=== PATIENT | female | born 1975 | race Caucasian/White ===

== ENCOUNTER → 2016-06-07 | Outpatient (CLI) | payer OTHER | END | disposition home or self-care (01) | LOC: C.PAPS 15:29 | PROVIDERS: ATTEND Obstetrics & Gynecology | DX: Z12.4 Encounter for screening for malignant neoplasm of cervix (principal) ==

== ENCOUNTER 2016-06-10 05:27 | Day surgery (SDC) | payer OTHER ==
--- NOTE | 2016-06-06 16:20 | HISTORY & PHYSICAL EXAMINATION ---
DATE OF ADMISSION: 06/10/2016 CHIEF COMPLAINT: Severe dysmenorrhea and heavy vaginal bleeding with clotting. HISTORY OF PRESENT ILLNESS: The patient is a 40-year-old 1, para 1. She has a history of being diagnosed with PCOD, pelvic and bowel adhesions and endometriosis. Her present problem started about a year ago when she started to have heavy vaginal bleeding with clotting and severe pelvic pain. The symptoms have been getting worse over the past year. When she gets her periods she has 2-3 days of heavy bleeding, soaking over a pad an hour, having to wear a pad and a tampon at night and bleeding through. Also her periods have become somewhat irregular. She has had 3 cycles in March, all of which were heavy cycles lasting for 6 days with 2-3 days of real heavy bleeding. During this heavy bleeding she has severe pelvic pain, for the same 2-3 days, unresponsive to non-narcotic pain relievers and she is unable to function during that time. She recently had a transvaginal ultrasound done on 05/09/2016 and that showed a thickened endometrium with the presence of some suspected endometrial polyps. She is presently being scheduled for an outpatient D\T\C hysteroscopy. PAST MEDICAL HISTORY: She has one girl 13 years old in good health. ALLERGIES: ALLERGIC TO AMOXICILLIN. PAST SURGICAL HISTORY: She has had 3 laparoscopies, 1 with a diagnosis of PCOD and she had a procedure of ovarian drilling at that time and she had 2 laparoscopies with lysis of adhesions. PAST MEDICAL HISTORY: No history of diabetes or high blood pressure. SOCIAL HISTORY: No smoking. No excessive alcohol intake. She is presently employed. FAMILY HISTORY: Mom is 69 in good health. Father 72, heavy smoker. REVIEW OF SYSTEMS: HEAD: No symptoms of frequent or severe headaches. EYES: No symptoms of blurred vision or double vision. EARS: No symptoms of frequent ear infections. PHYSICAL EXAMINATION: GENERAL: Well developed, well-nourished 40-year-old white female, alert, oriented x3 and cooperative in no acute distress, appears stated age. EYES: Conjunctivae are pink, sclerae white, no evidence of jaundice. EARS: Had normal light reflex bilaterally. NOSE: Had normal mucosa. Septum is midline. There were no polyps. THROAT: No erythema or evidence of infection. Teeth are in good state of repair. HEAD: Normocephalic, normal distribution of hair. NECK: Supple. Trachea midline. Thyroid is not enlarged. There is no adenopathy appreciated. Both carotids are of good intensity. CHEST: Clear to auscultation and percussion. No wheezes, rales or rhonchi appreciated. HEART: Regular rhythm. S1 and S2 are normal. BREASTS: Normal. ABDOMEN: Soft and nontender. PELVIC: Revealed normal-appearing cervix. Uterus was top normal size. There are no adnexal masses appreciated. MUSCULOSKELETAL: Revealed no calf tenderness. IMPRESSIONS OF THIS CASE: Status post 3 previous laparoscopies, status post lysis of adhesions and symptomatic uterine polyps, hypermenorrhea, severe pelvic pain.
[2016-06-07 12:49] VITALS: BMI 23.0
[2016-06-07 14:37] LABS: BASO % 0.2 %; BASO ABS # 0.01 K/uL (0-0.2); COMPLETE YES; EOS % 5.4 %; HEMATOCRIT 37.3 % (37-47); IG% 0.2 %; LYMPH % 40.9 %; LYMPH ABS # 1.98 K/uL (1.2-3.4); MEAN CELL VOLUME 91.6 fL (80-100); MEAN CORPUSCULAR HEMOGLOBIN 30.5 pg (25-34); MEAN CORPUSCULAR HGB CONC 33.2 g/dl (32-36); MEAN PLATELET VOLUME 10.6 fL (7.4-10.4); NEUT % 46.3 %; PLATELET COUNT 213 K/uL (130-400); RED BLOOD COUNT 4.07 M/uL (4.2-5.4); WHITE BLOOD COUNT 4.84 K/uL (4.8-10.8)
[2016-06-07 15:08] LABS: PREG INTERNAL NEGATIVE QC NEG CLEAR BACKGROUND; PREG INTERNAL POSITIVE QC POS CONTROL LINE
[~2016-06-10] VITALS: Ht 165.1 cm; Wt 64.1 kg
[2016-06-10 05:55] VITALS: BP 114/73; PULSE 86; TEMP 36.4; O2SAT 98; Ht 165.1 cm; Wt 64.1 kg
[2016-06-10] MEDS ORDERED: LACTATED RINGER'S 1000ML 1,000 ML IV SCH (06:00)
[2016-06-10] MEDS ORDERED: ONDANSETRON INJ 2 MG/ML 2 ML VIAL IV PRN ×2 (06:45→08:15)
[2016-06-10] MEDS ORDERED: ATROPINE SULFATE 0.1 MG/ML 5ML SYR IV PRN (06:45)
[2016-06-10] MEDS ORDERED: FENTANYL CITRATE INJ 50 MCG/1 ML 2 ML VIAL IV PRN (06:45)
[2016-06-10] MEDS ORDERED: EpHEDrine SULFATE INJ 50 MG/ML AMP IV PRN (06:45)
[2016-06-10] MEDS ORDERED: MIDAZOLAM HCL 1 MG/ML 2ML VIAL ONE (06:55)
[2016-06-10] MEDS ORDERED: FENTANYL CITRATE INJ 50 MCG/1 ML 2 ML VIAL ONE ×3 (06:55→08:14)
[2016-06-10] MEDS ORDERED: KETAMINE HCL INJ 50 MG/ML 10 ML VIAL ONE (06:56)
--- NOTE | 2016-06-10 07:28 | History & Physical Bridge Note ---
H&P Re-Evaluation Bridge Note: I have examined the patient, reviewed the History & Physical and in the interval since the performance of the History & Physical I have noted the following changes of clinical significance: No changes noted
[2016-06-10] MEDS ORDERED: KETOROLAC TROMETHAMINE 30 MG/ML VIAL ONE ×2 (08:13→08:27)
[2016-06-10] MEDS ORDERED: SODIUM CHLORIDE 0.9% 1000ML 1,000 ML IV SCH (08:15)
[2016-06-10] MEDS ORDERED: HYDROCODONE/ACETAMOPHEN 5/325MG TAB PO PRN ×4 (08:15)
[2016-06-10] MEDS ORDERED: IBUPROFEN 600 MG TAB PO PRN (08:15)
[2016-06-10] MEDS ORDERED: KETOROLAC TROMETHAMINE 30 MG/ML VIAL IV. PRN (08:15)
[2016-06-10] MEDS ORDERED: OXYCODONE/ACETAMINOPHEN 5-325 TAB PO PRN ×2 (08:15)
--- NOTE | 2016-06-10 08:15 | [facility] Post Operative Brief Note ---
Immediate Operative Summary Operative Date Jun 10, 2016. Pre-Operative Diagnosis Severe Dysmenorrhea and Symptomatic Uterine Polyps Post-Operative Diagnosis Severe Dysmenorrhea and Symptomatic Uterine Polyps Procedure(s) Performed Hysteroscopy, Dilation & Currettage and Polypectomy Surgeon Dr. Jose Manuel Delarosa Building Coordinator Surgeon(s) None Estimated Blood Loss 10ml Findings UTERUS SOUNDED TO 8.5 CM POLYPS REMOVED Specimens A. Uterine polyp B. Endometrial Currettings Complication(s) None Disposition Recovery Room / PACU
--- NOTE | 2016-06-10 08:18 | Discharge Instructions ---
Discharge Instructions Visit Reason for Visit: Hypermenorrhea, Endometrial Polyps, Dysmenorrhea, Discharge Discharge Diagnosis / Problem: SAME ADMISSION Discharge Goals Goal(s): Decrease discomfort, Improve function Activity Recommendations Activity Limitations: as noted below ACTIVITY RECOMMENDATIONS: * Avoid tampons, douching, hot tubs, pools, and intercourse until bleeding has stopped. * May shower as usual. * No strenuous activity for 24-48 hours. After 24-48 hours, you may do anything you feel like doing (driving and sports are okay). SPECIAL CARE INSTRUCTIONS: Special Diet: * Mild nausea may occur in the immediate post-operative period. * Take clear liquids such as tea, cola or bouillon until all nausea has subsided; you may then resume your normal diet. Special Care: * Light bleeding and vaginal spotting can last from a few days to 3-4 weeks. Call your doctor if bleeding becomes heavier than the heaviest part of your period. * Check your temperature twice a day for one week. If it goes above 100.4 degrees Fahrenheit (38.0 Celsius), notify your doctor. * Call your doctor's office for an appointment for 6 weeks after your surgery. FOLLOW-UP VISIT: Call your doctor's office for an appointment for 6 weeks after your surgery. Anesthesia . Post Anesthesia Instructions: If you have had General Anesthesia or IV Sedation: * Do not drive today. * Resume driving when surgeon permits. * Do not make important decisions or sign legal documents today. * Call surgeon for: 1. Temperature elevations greater than 101 degrees F. 2. Uncontrollable pain. 3. Excessive bleeding. 4. Persistent nausea and vomiting. 5. Medication intolerance (nausea, vomiting or rash). * For nausea and vomiting use only clear liquids such as: tea, soda, bouillon until nausea subsides, then gradually increase diet as tolerated. * If you have any concerns or questions, call your surgeon's office. If physician is unavailable and it is an emergency, call 911 or go to the nearest emergency room. . Diet Recommendations Recommended Home Diet: resume previous diet Procedures Procedures Performed: Hysteroscopy, Dilation & Currettage and Polypectomy Pending Studies Studies pending at discharge: no Medical Emergencies . Who to Call and When: Medical Emergencies: If at any time you feel your situation is an emergency, please call 911 immediately. . Non-Emergent Contact Non-Emergency issues call your: Speech Therapist Early Intervention Call Non-Emergent contact if: temperature is above 100.5 . . "Provider Documentation" section prepared by Jose Manuel Delarosa.
[2016-06-10] MEDS ORDERED: DEXAMETHASONE SOD INJ 4 MG/ML VIAL ONE (08:27)
[2016-06-10] MEDS ORDERED: PROPOFOL IV EMULSION 10 MG/ML 20 ML VIAL IV ONE (08:27)
[2016-06-10] MEDS ORDERED: ONDANSETRON INJ 2 MG/ML 2 ML VIAL ONE (08:27)
[2016-06-10] MEDS ORDERED: LIDOCAINE HCL 2% 2 ML VIAL (20MG/ML) ONE (08:27)
--- NOTE | 2016-06-10 08:30 | OPERATIVE REPORT ---
DATE OF OPERATION: 06/10/2016 PROCEDURES: D\T\C, hysteroscopy, and polypectomy. INDICATIONS FOR SURGERY: Heavy vaginal bleeding and abnormal transvaginal ultrasound showing endometrial polyp. POSTOPERATIVE DIAGNOSES: Same. Uterus sounded to 8.5 cm. SURGEON: Dr. Delarosa. ESTIMATED BLOOD LOSS: 10 mL. ANESTHESIA: General. OPERATIVE FINDINGS AND PROCEDURE: The patient was brought to the OR table, correctly identified by armband and conversation. General anesthesia was administered. Perineum and vagina were painted with Betadine paint, draped in the usual sterile fashion. Catheter was used to empty the bladder. Careful pelvic exam under anesthesia revealed a top normal size uterus, mid to anteverted in position. No adnexal masses appreciated. Weighted speculum was placed in the posterior vagina. Anterior lip of the cervix was grasped with single tooth tenaculum. Uterus sounded to 8.5 cm. Cervix was dilated with graduated dilators. A small hysteroscope using saline as a distention medium was inserted into the uterine cavity and photographs were taken. There were 2 small polyps on the anterior left side of the uterus. The scope was then removed. A polyp forceps was inserted and several pieces of polypoid tissue were removed with a polyp forceps. Then, a small sharp serrated curet was used to thoroughly and systematically curette out the entire endometrial cavity and then after this, a smooth curette was used to curette the entire endometrial cavity again. The scope was then reentered introduced. The uterine cavity was washed clean with saline through the scope and then photographs were taken. At this time the 2 polyps were gone. The endometrial cavity looked smooth and clean. Following this, hemostasis was good. Instruments were removed. The patient tolerated the procedure well and left the OR in good condition. I attest to the content of the Intraoperative Record and any orders documented therein. Any exceptions are noted below. MTDD
[2016-06-10 09:05] VITALS: BP 100/75; PULSE 80; TEMP 36.6; O2SAT 96
[2016-06-10 09:35] VITALS: BP 97/51; PULSE 63; O2SAT 92
--- NOTE | 2016-06-10 09:35 | Anesthesiology Progress Note ---
Anesthesia Post Op Note Date & Time Jun 10, 2016 at 09:34 Vital Signs Pain Intensity: 0 Vital Signs Past 12 Hours Date Time Temp Pulse Resp B/P Pulse Ox O2 Delivery O2 Flow Rate FiO2 06/10/16 09:00 99/64 06/10/16 08:57 37.0 06/10/16 08:54 71 16 98 06/10/16 08:54 67 16 06/10/16 08:53 95/62 06/10/16 08:49 74 16 06/10/16 08:49 75 16 98 06/10/16 08:48 101/66 06/10/16 08:44 77 16 06/10/16 08:44 77 16 98 06/10/16 08:43 99/71 06/10/16 08:39 72 21 06/10/16 08:39 73 21 95 06/10/16 08:39 96 Nasal Cannula 2 06/10/16 08:38 108/65 06/10/16 08:34 70 20 06/10/16 08:34 70 20 99 06/10/16 08:33 101/68 06/10/16 08:29 75 18 06/10/16 08:29 76 18 98 06/10/16 08:28 102/68 06/10/16 08:24 63 20 06/10/16 08:24 62 20 98 06/10/16 08:23 103/66 06/10/16 08:19 69 16 06/10/16 08:19 37.6 66 16 108/71 99 Mask 10 06/10/16 08:19 68 16 99 06/10/16 05:55 36.4 86 18 114/73 98 Room Air Notes Mental Status: alert / awake / arousable, participated in evaluation Pt Amnestic to Procedure: Yes Nausea / Vomiting: adequately controlled Pain: adequately controlled Airway Patency, RR, SpO2: stable & adequate BP & HR: stable & adequate Hydration State: stable & adequate Anesthetic Complications: no major complications apparent
[2016-06-10 10:05] VITALS: BP 93/61; PULSE 72; TEMP 36.8; O2SAT 99
== END 2016-06-10 10:25 | disposition home or self-care (01) ==
LOC: C.ACU 05:27
PROVIDERS: ATTEND Obstetrics & Gynecology
DX: N84.0 Polyp of corpus uteri (principal); N92.4 Excessive bleeding in the premenopausal period; Z88.1 Allergy status to other antibiotic agents